=== PATIENT | female | born 1975 | race Caucasian/White ===

== ENCOUNTER 2019-08-28 17:12 | Emergency (ER) | payer OTHER ==
[2019-08-28 17:20] VITALS: BP 181/96
--- NOTE | 2019-08-28 17:46 | ER Document Report ---
HPI - HPI Patient complains to provider of: Left eye irritation Pain Level: 4 Context: 43-year-old female past medical history significant for Crohn's, presents to the emergency room complaining of left eye irritation that started last night. Denies any drainage or discharge. Denies any exposure to conjunctivitis. States she has had a runny nose for the past 2 days. No changes in vision. No use of contacts. No injury. Did recently travel here from [place] 2 days ago. But denies any COVID-19 exposure. Associated Symptoms: Rhinnorhea Exacerbated by: Denies Relieved by: Denies Similar symptoms previously: No Recently seen / treated by doctor: No - ROS Systems Reviewed and Negative: Yes All other systems reviewed and negative - EENT EENT: REPORTS: Nasal Drainage-Clear. DENIES: Sore Throat, Ear Pain Notes: Left eye irritation - RESPIRATORY Respiratory: DENIES: Trouble Breathing - REPRODUCTIVE Reproductive: DENIES: : - DERM Skin Color: Normal Skin Problems: None Past Medical History - General Information source: Patient - Social History Smoking Status: Never Smoker Frequency of alcohol use: None Drug Abuse: None Family History: Reviewed & Not Pertinent Patient has homicidal ideation: No Vertical Provider Document - CONSTITUTIONAL Agree With Documented VS: Yes Exam Limitations: No Limitations General Appearance: Mild Distress - INFECTION CONTROL TRAVEL OUTSIDE OF THE [place] IN LAST 30 DAYS: No - HEENT HEENT: Atraumatic, Conjuctival Injection, Normocephalic, PERRLA. negative: Pharyngeal Tenderness, Pharyngeal Erythema, Tympanic Membrane Red, Tympanic Membrane Bulging Notes: Left eye with erythema. Clear drainage noted. - NECK Neck: Normal Inspection, Supple, Thyroid Normal - RESPIRATORY Respiratory: Breath Sounds Normal, No Respiratory Distress, Chest Non-Tender. negative: Rales, Rhonchi, Wheezing - CARDIOVASCULAR Cardiovascular: Regular Rate, Regular Rhythm, No Murmur - MUSCULOSKELETAL/EXTREMETIES Musculoskeletal/Extremeties: FROM - NEURO Level of Consciousness: Awake, Alert, Appropriate Motor/Sensory: No Motor Deficit, No Sensory Deficit - DERM Integumentary: Warm, Dry, No Rash Course - Re-evaluation Re-evalutation: 08/28/19 17:44 Counseled on viral versus bacterial conjunctivitis. Use eyedrops as prescribed. With an forensic manager if not improving in 2 to 3 days. You were provided with an on-call physician. Recheck with your primary care physician returning home. Patient was given strict return to the emergency room guidelines. Return for any new or worsening symptoms. All questions were answered. Patient verbalized understanding and agrees with plan of care. - Vital Signs Vital signs: Temp Pulse Resp BP Pulse Ox 98.3 F 78 16 181/96 H 99 08/28/19 17:19 08/28/19 17:19 08/28/19 17:19 08/28/19 17:19 08/28/19 17:19 Discharge - Discharge Clinical Impression: Conjunctivitis, left eye Qualifiers: Conjunctivitis type: unspecified Qualified Code(s): H10.9 - Unspecified conjunctivitis Condition: Stable Disposition: HOME, SELF-CARE Instructions: Conjunctivitis ([facility]), Eyedrop Use ([facility]) Additional Instructions: Good handwashing. Use eyedrops as prescribed. Follow-up with an forensic manager if not improving in 2 days. Return for any new or worsening symptoms. Prescriptions: Moxifloxacin HCl [Vigamox 0.5% Oph Soln 3 ml] 1 drop OP TID 7 Days #1 bottle Referrals: SETH ASHTON MD [ACTIVE STAFF] - Follow up as needed
== END 2019-08-28 17:54 | disposition home or self-care (01) ==
LOC: ER 17:12
DX: H10.9 Unspecified conjunctivitis (principal); J34.89 Other specified disorders of nose and nasal sinuses
CPT/HCPCS: 99282